=== PATIENT | female | born 1980 | race Caucasian/White ===

== ENCOUNTER 2021-09-30 10:44 | Outpatient (CLI) | payer MEDICAID, SELFPAY ==
--- NOTE | 2021-09-30 10:45 | CRLHL7_ITS ---
For Patients: As a result of the Cures Act, medical imaging exams and procedure reports are released immediately into your electronic medical record. You may view this report before your referring provider. If you have questions, please contact your health care provider. DIIGTAL DIAGNOSTIC BILATERAL MAMMOGRAM USING TOMOSYNTHESIS AND COMPUTER-AIDED DETECTION, 09/30/2021 BILATERAL BREAST ULTRASOUND, 09/30/2021 CLINICAL HISTORY: BILATERAL breast lumps. COMPARISON: Mammogram/ultrasound 01/22/2021 and 05/23/2019. RIGHT breast cyst aspiration 01/26/2021. TECHNIQUE: Digital BILATERAL mammogram in four projections. Tomosynthesis and CAD utilized. Real-time ultrasound imaging of BILATERAL breast with imaging documentation. BREAST COMPOSITION: The breasts are heterogeneously dense, which may obscure small masses. FINDINGS: 3D CC and 3D MLO mammogram submitted bilaterally. Benign fibrocystic changes are noted bilaterally without architectural distortion or suspicious masses. No adenopathy or suspicious calcifications. Targeted RIGHT breast ultrasound in the area of concern RIGHT breast 11 o`clock 7 cm from the nipple performed. In this location at mid depth there is a simple anechoic cyst measuring 8 x 6 x 7 mm. Targeted LEFT breast ultrasound in the area of concern 12 o`clock 6 cm from the nipple performed. In this location at mid depth there is a benign intramammary lymph node with a normal central fatty hilum measuring 1.0 x 0.5 x 1.0 cm. IMPRESSION: BILATERAL for benign fibrocystic changes and benign intramammary lymph node LEFT breast. No evidence of malignancy. BI-RADS Category 2: Benign RECOMMENDATIONS: Annual BILATERAL screening mammography. Results and recommendations discussed with the patient. A lay language report of this examination will be provided to the patient. Dictated by Rei Harding MD @ 09/30/2021 11:50:50 AM jj/Dictated by: Rei Harding MD @ 09/30/2021 11:50:00 AM (Electronically Signed)
--- NOTE | 2021-09-30 11:15 | CRLHL7_ITS ---
For Patients: As a result of the Cures Act, medical imaging exams and procedure reports are released immediately into your electronic medical record. You may view this report before your referring provider. If you have questions, please contact your health care provider. PLEASE SEE BILATERAL DIAGNOSTIC MAMMOGRAM PERFORMED SAME DAY. CRL:candi christopher/Dictated by: Rei Harding MD @ 09/30/2021 11:50:00 AM (Electronically Signed)
== END 2021-09-30 10:45 | disposition home or self-care (01) ==
LOC: MAMMO 10:45
PROVIDERS: PCP Physician Assistant Medical; Visit Provider Physician Assistant Medical
DX: N63.10 Unspecified lump in the right breast, unspecified quadrant (principal); N63.20 Unspecified lump in the left breast, unspecified quadrant; N60.19 Diffuse cystic mastopathy of unspecified breast
CPT/HCPCS: 76642; 77066; G0279

== ENCOUNTER 2022-01-24 14:19 | Outpatient (CLI) | payer MEDICAID, SELFPAY ==
[2022-01-24 21:57] LABS: Albumin* 4.6 g/dL (3.3-5.0); Chloride* 98 mmol/L (96-114); Sodium* 136 mmol/L (135-149)
[2022-01-24 21:58] LABS: Potassium* 4.1 mmol/L (3.6-5.1)
[2022-01-24 21:59] LABS: Creatinine* 0.6 mg/dL (0.5-1.5); Estimated Glomerular Filt Rate 116 ml/min
[2022-01-24 22:00] LABS: Alanine Aminotransferase* 56 U/L (4-35); Alkaline Phosphatase* 87 U/L (40-150); Aspartate Amino Transferase* 60 U/L (12-35); Bilirubin Total* 0.4 mg/dL (0.1-1.5); Blood Urea Nitrogen* 9 mg/dL (5-24); Carbon Dioxide* 27 mmol/L (20-32); Glucose* 74 mg/dL (60-115); Lipase* 124 U/L (23-300); Total Protein* 7.4 g/dL (6.0-8.3)
[2022-01-24 22:01] LABS: Calcium* 9.2 mg/dL (8.4-10.6)
== END 2022-01-24 14:20 | disposition home or self-care (01) ==
PROVIDERS: PCP Physician Assistant Medical; Visit Provider Physician Assistant Medical
DX: R10.9 Unspecified abdominal pain (principal); K92.1 Melena; I10 Essential (primary) hypertension
CPT/HCPCS: 80053; 83690

== ENCOUNTER 2022-02-03 13:49 | Outpatient (CLI) | payer MEDICAID, SELFPAY ==
--- NOTE | 2022-02-03 14:00 | CRLHL7_ITS ---
For Patients: As a result of the Century Cures Act, medical imaging exams and procedure reports are released immediately into your electronic medical record. You may view this report before your referring provider. If you have questions, please contact your health care provider. INDICATION: Right upper quadrant abdominal pain. Elevated liver function tests. TECHNIQUE: Right upper quadrant ultrasound. FINDINGS: Dense echogenic liver likely due to fatty infiltration or other intrinsic hepatic parenchymal process. No hepatic mass. No biliary ductal dilatation. No right upper quadrant ascites. Normal gallbladder without stones or sludge. The gallbladder wall measures 1.2 mm. The common bile duct measures up to 6.2 mm. The pancreas demonstrates a heterogeneous partly hypoechoic echotexture which is nonspecific. The right kidney measures 10.6 x 5.2 x 4.3 cm. No right-sided hydronephrosis. The visualized aorta and IVC are unremarkable. IMPRESSION: 1. Dense echogenic liver which may reflect fatty infiltration or other intrinsic hepatic parenchymal process. 2. Heterogeneous hypoechoic echotexture of the pancreas entirely nonspecific. 3. No gallstones or biliary dilatation. No right upper quadrant ascites. Dictated by Vasu Zarate MD @ 02/03/2022 3:04:43 PM (Electronically Signed)
== END 2022-02-03 13:50 | disposition home or self-care (01) ==
LOC: US 13:50
PROVIDERS: PCP Physician Assistant Medical; Visit Provider Physician Assistant Medical
DX: R10.11 Right upper quadrant pain (principal); R79.89 Other specified abnormal findings of blood chemistry
CPT/HCPCS: 76705

== ENCOUNTER 2022-04-04 11:00 | Emergency (ER) | payer MEDICAID, SELFPAY ==
[2022-04-04 11:04] VITALS: BP 113/74; PULSE 131; RESP 16; TEMP 36.3; O2SAT 99; BMI 25.0
[2022-04-04] MEDS: OXYCODONE 5 MG TABLET PO (11:51)
--- NOTE | 2022-04-04 11:51 | ED_ITS ---
HPI - General Adult General Date Seen: 04/04/22 Chief complaint: Unspecified Complaint, Adult Stated complaint: Rectal prolapse Time Seen by Provider: 04/04/22 11:17 Source: patient History of Present Illness HPI narrative: Patient is a 41-year-old female who presents complaining of severe rectal pain. She says this has been bothering her since the weekend, she presents the ER on Monday. She is concerned about a recurrent rectal prolapse. She says that she has been having problems since January, but she has always been able to reduce things. Over the weekend, she has not been able to reduce it however because it is simply too painful. She says she has felt nauseated because of the pain. She has not had any vomiting. She called her clinic today to if she could be referred back to her surgeon sooner, but they recommended that she come to the ER. She does have an appointment with her surgeon upcoming but not for a couple weeks and she says she could not wait until then. 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 She says that she has difficulty with healing after surgery because things tend to ?fall apart. Related Data Home Medications Medication Instructions Recorded Confirmed desvenlafaxine succinate 100 mg 100 mg PO DAILY 01/24/22 04/04/22 tablet,extended release 24 hr Previous Rx's Medication Instructions Recorded valsartan 320 1 tab PO QDAY #90 tabs 01/24/22 mg-hydrochlorothiazide 25 mg tablet peg 3350-electrolytes 236 240 ml PO Q10M #4,000 mL 02/16/22 gram-22.74 gram-6.74 gram-5.86 gram solution (Golytely) lisdexamfetamine 10 mg capsule 10 mg PO QAM #30 caps 03/07/22 (Vyvanse) pregabalin 150 mg capsule 150 mg PO QDAY #90 caps 03/25/22 hydrocortisone 2.5 % topical cream 1 applic topical BID #20 grams 04/04/22 oxycodone 5 mg tablet 5 mg PO Q6H PRN pain #7 tabs 04/04/22 Allergies Allergy/AdvReac Type Severity Reaction Status Date / Time amoxicillin Allergy Intermediate Nausea Verified 04/04/22 11:10 Doxycycline Allergy Unknown Uncoded 04/04/22 11:10 Escitalopram Allergy Unknown Uncoded 04/04/22 11:10 Review of Systems Status of ROS: Reports: 10 or more systems reviewed and unremarkable except as noted in History and below [facility] Medical History Cellulitis Fibromyalgia History of malignant melanoma History of opioid abuse Ovarian torsion (~05/2019) Surgical History (Updated 01/26/22 @ 07:36 by Keshia Bustillos PA-C) History of arthroplasty of left hip History of hernia repair History of partial hysterectomy Status post left oophorectomy (2019) Social History Smoking Status: Current every day smoker How often do you have a drink containing alcohol: never AUDIT-C Alcohol total score: 0 Non-prescribed substance use: denies use Exam Narrative: Exam Narrative: Vital signs reviewed In general, an alert, somewhat tearful woman. Abdomen: Soft and nontender to palpation Rectal: She has a thrombosed hemorrhoid. Rectal exam is otherwise normal. No evidence of rectal prolapse. Skin: Warm and dry. Const: Vital Signs, click to edit/add: Vital Signs - 24 hr 04/04/22 11:04 Temperature 97.4 F L Pulse Rate [Right Pulse Oximeter] 131 H Respiratory Rate 16 Blood Pressure [Ri ght Upper Arm] 113/74 Pulse Oximetry 99 Oxygen Delivery Me thod Room Air Documenting provider has reviewed patient's vital signs: yes Course Course Hospital Course: Reassured her that there is no evidence of prolapse here. Symptoms are coming from the thrombosed hemorrhoid which it sounds like has been symptomatic for coming up on 3 days. Given that she is at the tail end of when this is likely to be symptomatic and taking into account her connective tissue disease, I am hesitant to excise this. I think she would be better served by symptomatic management. She is given oxycodone orally here. I will give her oxycodone rate home, hydrocortisone cream to use over the next several days, up to 1 week maximum. Sitz baths. Anticipate this will improve over the next day or so. Vital Signs Vital signs: Initial Vital Signs Temperature 97.4 F L 04/04/22 11:04 Temperature Source Temporal Artery Scan 04/04/22 11:04 Pulse Rate 131 H 04/04/22 11:04 Respiratory Rate 16 04/04/22 11:04 Blood Pressure 113/74 04/04/22 11:04 Blood Pressure Mean 87 04/04/22 11:04 Blood Pressure Position Sitting 04/04/22 11:04 Pulse Oximetry 99 04/04/22 11:04 Oxygen Delivery Method 04/04/22 11:04 Vital Signs Temperature 97.4 F L 04/04/22 11:04 Pulse Rate 131 H 04/04/22 11:04 Respiratory Rate 16 04/04/22 11:04 Blood Pressure 113/74 04/04/22 11:04 Pulse Oximetry 99 04/04/22 11:04 Oxygen Delivery Method 04/04/22 11:04 Temperature 97.4 F L 04/04/22 11:04 Pulse Rate 131 H 04/04/22 11:04 Respiratory Rate 16 04/04/22 11:04 Blood Pressure 113/74 04/04/22 11:04 Pulse Oximetry 99 04/04/22 11:04 Oxygen Delivery Method 04/04/22 11:04 Discharge Plan Discharge Clinical Impression: Thrombosed hemorrhoids Patient Disposition: Home, Self-Care Condition: Stable Instructions: Thrombosed Hemorrhoid (ED) Additional Instructions: Recommend Sitz baths, medications as prescribed. Use steroid for only several days up to 1 week. Symptoms will likely less than over the next 24 hours. Make sure to stay hydrated, avoid constipation. Do not sit on the toilet for prolonged periods of time. Prescriptions: New hydrocortisone 2.5 % cream 1 applic topical BID Qty: 20 0RF oxycodone 5 mg tablet 5 mg PO Q6H PRN (Reason: pain) Qty: 7 0RF No Action desvenlafaxine succinate 100 mg tablet extended release 24 hr 100 mg PO DAILY valsartan-hydrochlorothiazide 320-25 mg tablet 1 tab PO QDAY Qty: 90 0RF peg 3350-electrolytes [Golytely] 236-22.74-6.74 -5.86 gram recon soln 240 ml PO Q10M Qty: 4000 0RF Rx Instructions: until fecal effluent is clear Vyvanse 10 mg capsule 10 mg PO QAM Qty: 30 0RF pregabalin 150 mg capsule 150 mg PO QDAY Qty: 90 0RF Follow Up/Referrals: Keshia Bustillos PA-C [Primary Care Provider] - Stand Alone Forms: MyHealth Info Instructions
== END 2022-04-04 12:07 | disposition home or self-care (01) ==
PROVIDERS: Emergency Provider Emergency Medicine; PCP Physician Assistant Medical
DX: K64.5 Perianal venous thrombosis (principal)
CPT/HCPCS: 99283; 99284; A9270

== ENCOUNTER 2022-04-06 14:01 | Emergency (ER) | payer MEDICAID, SELFPAY ==
[2022-04-06 14:07] VITALS: RESP 18
[2022-04-06 14:14] VITALS: BP 150/91; PULSE 118; RESP 18; TEMP 36.4; O2SAT 97; BMI 25.0
--- NOTE | 2022-04-06 15:03 | ED.NURSE ---
I, Ira Edouard RN, was present for an examination as a fish processor for a rectal exam. No specimens were collected during this exam.
[2022-04-06] MEDS: OxyCODONE/APAP 5-325 TABLET 2 TAB PO (15:33)
[2022-04-06] MEDS: BUPIVACAINE 0.25% 30 ML INJECTION (15:45)
--- NOTE | 2022-04-06 16:41 | ED.NURSE ---
Assisted Dr. Zapata with a hemorrhoid dissection.
--- NOTE | 2022-04-06 18:01 | ED.GENADULT ---
HPI - General Adult General Chief complaint: Unspecified Complaint, Adult Stated complaint: Hemorrhoid pain Time Seen by Provider: 04/06/22 14:07 History of Present Illness HPI narrative: 41-year-old woman returning to the emergency department with complaint of severe anal area pain. Was seen here 3 days ago and noted to have a thrombosed external hemorrhoid but due to underlying Toby-Danlos concerns were noted regarding intervention and potential poor healing. I inquire with Ms. Krueger about what degree of Toby-Danlos she has, she notes more muscular effect of some sort. She is quite worried that she has now been experiencing some rectal prolapse. Some years ago did undergo procedures for pelvic floor dysfunction including prolapse. She feels like this might be occurring again; is quite fearful that this is occurring again. She is nauseated due to knife like pain and is terrified of having another bowel movement. Tearful recounting. She maintains that these have been relatively soft. She was discharged with 7 tablets of Percocet she says and has 2 more remaining. Has only been taking 1 at a time. Has also been using hydrocortisone cream and some witch Peace. Pain is into her abdomen as well is even nauseated with her pain. Related Data Home Medications Medication Instructions Recorded Confirmed desvenlafaxine succinate 100 mg 100 mg PO DAILY 01/24/22 04/04/22 tablet,extended release 24 hr Previous Rx's Medication Instructions Recorded valsartan 320 1 tab PO QDAY #90 tabs 01/24/22 mg-hydrochlorothiazide 25 mg tablet peg 3350-electrolytes 236 240 ml PO Q10M #4,000 mL 02/16/22 gram-22.74 gram-6.74 gram-5.86 gram solution (Golytely) lisdexamfetamine 10 mg capsule 10 mg PO QAM #30 caps 03/07/22 (Vyvanse) pregabalin 150 mg capsule 150 mg PO QDAY #90 caps 03/25/22 hydrocortisone 2.5 % topical cream 1 applic topical BID #20 grams 04/04/22 oxycodone 5 mg tablet 5 mg PO Q6H PRN pain #7 tabs 04/04/22 lidocaine 4 % topical cream 1 applic topical QID PRN pain #15 04/06/22 grams Allergies Allergy/AdvReac Type Severity Reaction Status Date / Time amoxicillin Allergy Intermediate Nausea Verified 04/04/22 11:10 Doxycycline Allergy Unknown Uncoded 04/04/22 11:10 Escitalopram Allergy Unknown Uncoded 04/04/22 11:10 Review of Systems Status of ROS: Reports: 10 or more systems reviewed and unremarkable except as noted in History and below [facility] Medical History Cellulitis Fibromyalgia History of malignant melanoma History of opioid abuse Ovarian torsion (~05/2019) Surgical History (Updated 01/26/22 @ 07:36 by Keshia Bustillos PA-C) History of arthroplasty of left hip History of hernia repair History of partial hysterectomy Status post left oophorectomy (2019) Social History Smoking Status: Current every day smoker How often do you have a drink containing alcohol: never AUDIT-C Alcohol total score: 0 Non-prescribed substance use: denies use Exam Narrative: Exam Narrative: Pleasant. Intermittently tearful. Rather uncomfortable with transitions in the bed. Skin is warm and dry. Well perfused peripherally. Breathing easily. Heart with elevated rate in a regular rhythm. Abdomen with normal bowel sounds is soft with a little discomfort to palpation cross the low abdomen. No mass is appreciated. Ano-rectal exam accomplished with automobile brake bonder present. There is a 2 cm thrombosed but not remarkably inflamed hemorrhoid just right of the 6 o'clock position. This appears to be the area of maximal pain. Some indication of mild hemorrhoidal tissue elsewhere. Asked to push I do not see any evidence to suggest impending rectal prolapse. Const: Vital Signs, click to edit/add: Vital Signs - 24 hr 04/06/22 14:14 04/06/22 14:07 Temperature 97.6 F Pulse Rate [Right Pulse Oximeter] 118 H Respiratory Rate 18 Respiratory Rate [ Rectum] 18 Blood Pressure [Ri ght Upper Arm] 150/91 H Pulse Oximetry 97 Oxygen Delivery Me thod Room Air Documenting provider has reviewed patient's vital signs: yes Course Vital Signs Vital signs: Initial Vital Signs Respiratory Rate 18 04/06/22 14:07 Vital Signs Respiratory Rate 18 04/06/22 14:07 Temperature 97.6 F 04/06/22 14:14 Pulse Rate 118 H 04/06/22 14:14 Respiratory Rate 18 04/06/22 14:14 Blood Pressure 150/91 H 04/06/22 14:14 Pulse Oximetry 97 04/06/22 14:14 Oxygen Delivery Method 04/06/22 14:14 Medical Decision Making MDM Narrative Medical decision making narrative: I am unsure whether or not lysis of this hemorrhoid would be helpful however there does not seem to be any other reason for her to be having this degree of pain. There is some other scarring on buttocks consistent with cystic structures in the past; scarring that does seem a little atypical possibly representing then Toby Danlos. Informed consent obtained. She would like to proceed with hemorrhoid excision. Again automobile brake bonder present for entire procedure and further exam. Prior to proceeding was given two tablets of Percocet. This did ultimately take hold but shortly before she did tolerate anal area njection of fanned bupivicaine. Excellent procedural anesthesia ultimately achieved. Area was cleansed with Betadine before proceeding. 15 blade used to enter the largest hemorrhoid. Numerous small clots were bluntly dissected with curved mosquito. There was another hemorrhoid slightly more medial to this larger hemorrhoid from which I removed also another small clot. Was able then to reduce residual hemorrhoidal tissues somewhat into anus. Did also place anoscopy to examine area further. Small purple hemorrhoidal tissue evident about an inch in around 6 o'clock dentate line. No indication otherwise of inflammatory changes in the rectum. She tolerated entire procedure very well; placement of the anoscope as well. Approximately 3 ml of bleeding. Only small oozing at procedure end. Rolled gauze placed. Discharge Plan Discharge Clinical Impression: External hemorrhoid, thrombosed, Anal or rectal pain Patient Disposition: Home w/ Parent or Adult Condition: Stable Additional Instructions: Very important that you keep your stool soft. Be sure you are drinking at least 2-3 L of water daily. Supplement with fruits. Might take 2 doses of MiraLax equivalent by noon and adjust to stool consistency. If you are taking your Percocet, consider also taking senna once or twice daily. You might benefit from steroid cream but I think in the short term anesthetic creams containing lidocaine or benzocaine and witch Peace will be most helpful. I would try the 4% lidocaine ointment or cream; gels may have drying agents like alcohol which could be uncomfortable. Icing as you discussed, Sitz baths. Return for uncontrolled pain and bleeding such that you are soaking 1 thick pad an hour for 2 consecutive hours. If you do not already have a bidet lid for your toilet or a real bidet, consider getting one. Can also use a shower Wand in the tub/shower for cleaning. Temporarily can take up to 800 mg of ibuprofen per dose or up to 1000 mg of acetaminophen per dose; these can be combined. Alternative to the ibuprofen could take up to 500 mg of naproxen 2 times daily. Percocet and Zofran from [facility] Prescriptions: New lidocaine 4 % cream 1 applic topical QID PRN (Reason: pain) Qty: 15 1RF No Action desvenlafaxine succinate 100 mg tablet extended release 24 hr 100 mg PO DAILY valsartan-hydrochlorothiazide 320-25 mg tablet 1 tab PO QDAY Qty: 90 0RF hydrocortisone 2.5 % cream 1 applic topical BID Qty: 20 0RF oxycodone 5 mg tablet 5 mg PO Q6H PRN (Reason: pain) Qty: 7 0RF peg 3350-electrolytes [Golytely] 236-22.74-6.74 -5.86 gram recon soln 240 ml PO Q10M Qty: 4000 0RF Rx Instructions: until fecal effluent is clear Vyvanse 10 mg capsule 10 mg PO QAM Qty: 30 0RF pregabalin 150 mg capsule 150 mg PO QDAY Qty: 90 0RF Follow Up/Referrals: Keshia Bustillos PA-C [Primary Care Provider] - Stand Alone Forms: MyHealth Info Instructions
== END 2022-04-06 18:35 | disposition home or self-care (01) ==
PROVIDERS: Emergency Provider Family Medicine; PCP Physician Assistant Medical
DX: K64.5 Perianal venous thrombosis (principal)
CPT/HCPCS: 46320; 99283; 99284; A9270; J3490

== ENCOUNTER 2022-09-08 14:20 | Outpatient (CLI) | payer MEDICAID, SELFPAY | END 2022-09-08 14:21 | disposition home or self-care (01) | PROVIDERS: PCP Physician Assistant Medical; Visit Provider Physician Assistant Medical | DX: R10.9 Unspecified abdominal pain (principal); R79.89 Other specified abnormal findings of blood chemistry; R19.7 Diarrhea, unspecified | CPT/HCPCS: 80076; 83516; 83690 ==

== ENCOUNTER 2022-09-22 11:37 | Outpatient (CLI) | payer MEDICAID, SELFPAY ==
--- NOTE | 2022-09-22 12:00 | CRLHL7_ITS ---
For Patients: As a result of the Century Cures Act, medical imaging exams and procedure reports are released immediately into your electronic medical record. You may view this report before your referring provider. If you have questions, please contact your health care provider. INDICATION: 41-year-old female. Abdominal pain for greater than 1 year. Negative ultrasound February 03, 2022. TECHNIQUE: 5.36 mCi Tc-99m labeled Mebrofenin. 1.38 mcg Kinevac IV. FINDINGS: Normal uptake and excretion of tracer by the liver. Activity is identified promptly within the extrahepatic biliary tree and the gallbladder between 10 and 15 minutes after injection. The gallbladder continues to fill up to 1 hour. After the administration of Kinevac the patient`s typical symptoms were reproduced. However the ejection fraction is calculated at 91 percent which is within normal limits. IMPRESSION: 1. Normal HIDA scan. No evidence for cystic duct or common duct obstruction. No biliary leak. No evidence for acute cholecystitis. 2. Normal gallbladder ejection fraction of 91 percent. Dictated by Vasu Zarate MD @ 09/22/2022 2:32:08 PM (Electronically Signed)
== END 2022-09-22 11:38 | disposition home or self-care (01) ==
LOC: NM 11:37
PROVIDERS: PCP Physician Assistant Medical; Visit Provider Physician Assistant Medical
DX: R10.9 Unspecified abdominal pain (principal)
CPT/HCPCS: 78227; A9537; J2805

== ENCOUNTER 2022-10-13 10:17 | Outpatient (CLI) | payer MEDICAID, SELFPAY ==
--- NOTE | 2022-10-13 07:09 | W.ANESCHARGE ---
Anesthesia Charges Start Date/Time Anesthesia Start Date: 10/13/22 Anesthesia Start Time: 12:48 Stop Date/Time Anesthesia Stop Date: 10/13/22 Anesthesia Stop Time: 13:06
--- NOTE | 2022-10-13 07:09 | PM.ANHP ---
HPI - Pre-Anesthesia History of Present Illness Time Seen by Provider: 11:05 Date Seen: 10/13/22 Date of service: 10/13/22 Source: patient and old records reviewed Review of Systems Status of ROS Reports: 6 or more systems reviewed and unremarkable except as noted in History and below [facility] Medical History (Updated 10/03/22 @ 19:52 by Keshia Bustillos PA-C) Ovarian torsion (~05/2019) ?N83.519 - Torsion of ovary and ovarian pedicle, unspecified side (ICD-10) History of opioid abuse ?F11.11 - Opioid abuse, in remission (ICD-10) History of malignant melanoma ?Z85.820 - Personal history of malignant melanoma of skin (ICD-10) Cellulitis ?L03.90 - Cellulitis, unspecified (ICD-10) Surgical History (Updated 01/26/22 @ 07:36 by Keshia Bustillos PA-C) History of arthroplasty of left hip ?Z98.890 - Other specified postprocedural states (ICD-10) Status post left oophorectomy (2019) ?Z90.721 - Acquired absence of ovaries, unilateral (ICD-10) History of partial hysterectomy ?Z90.711 - Acquired absence of uterus with remaining cervical stump (ICD-10) History of hernia repair ?Z98.890 - Other specified postprocedural states (ICD-10) ?Z87.19 - Personal history of other diseases of the digestive system (ICD-10) Social History Smoking Status: Current every day smoker How often do you have a drink containing alcohol: never AUDIT-C Alcohol total score: 0 Non-prescribed substance use: denies use Little interest or pleasure in doing things: not at all Feeling down, depressed, or hopeless: not at all Meds Home Medications and Allergies Allergies Allergy/AdvReac Type Severity Reaction Status Date / Time amoxicillin Allergy Intermediate Nausea Verified 09/08/22 14:45 doxycycline Allergy Verified 09/08/22 14:45 escitalopram Allergy Verified 09/08/22 14:45 fluconazole Allergy Verified 09/08/22 14:45 tramadol Allergy Verified 09/08/22 14:45 Exam Const Documenting provider has reviewed patient's vital signs: yes Common normals: no apparent distress, oriented x3, healthy appearing, alert and well nourished General appearance: cooperative and comfortable Orientation/consciousness: Yes awake HENMT Common normals: normocephalic Head and scalp: normocephalic Neck & C-Spine Common normals: full ROM Chest Chest: symmetrical chest wall rise Resp Common normals: normal respiratory effort, no retractions, no use of accessory muscles and clear to auscultation bilaterally Auscultation: clear to auscultation bilaterally Cardio Common normals: regular rate, regular rhythm, S1 normal heart sound, S2 normal heart sound and no murmurs Rate: regular rate Rhythm: regular rhythm Heart sounds: S1 normal and S2 normal Neuro Common normals: oriented x3 Sensorium/orientation: awake and alert Assessment and Plan Assessment and plan (1) GERD (gastroesophageal reflux disease): Status: Acute (2) Abdominal pain: Status: Acute Plan ok to proceed with sedation for endoscopy
--- NOTE | 2022-10-13 13:09 | W.ANESCHARGE ---
Anesthesia Charges Start Date/Time Anesthesia Start Date: 10/13/22 Anesthesia Start Time: 12:48 Stop Date/Time Anesthesia Stop Date: 10/13/22 Anesthesia Stop Time: 13:06
== END 2022-10-13 10:18 | disposition home or self-care (01) ==
LOC: OP CLINIC 10:18
PROVIDERS: PCP Physician Assistant Medical; Visit Provider Surgery
DX: R10.13 Epigastric pain (principal); K22.89 Other specified disease of esophagus; K29.70 Gastritis, unspecified, without bleeding; K31.89 Other diseases of stomach and duodenum
CPT/HCPCS: 43239; 731; 88305; J2704; J3490

== ENCOUNTER 2023-06-06 13:11 | Outpatient (CLI) | payer MEDICAID, SELFPAY ==
[2023-06-06 15:29] LABS: Chlamydia DNA Amplified* NOT DETECTED (No Detected); GC DNA Amplified* NOT DETECTED (No Detected)
== END 2023-06-06 13:12 | disposition home or self-care (01) ==
PROVIDERS: PCP Physician Assistant Medical; Visit Provider Physician Assistant
DX: N93.0 Postcoital and contact bleeding (principal)
CPT/HCPCS: 83001; 84443; 87491; 87591

== ENCOUNTER 2023-06-14 15:49 | Outpatient (CLI) | payer MEDICAID, SELFPAY ==
--- NOTE | 2023-06-14 16:00 | US_ITS ---
Patient: AARON TAVERAS Facility:?[facility] Patient ID:?[id number] Site Patient ID:?[id number]. Site :?[id number] Study:?US-OB Pelvis TA/TV Pelvic US-06/14/2023 4:41:57 PM Ordering Physician:Kiel June Final Report: INDICATION: Pelvic pain/bloating COMPARISON: Ultrasound 06/03/2019 TECHNIQUE: 2D cortes scale and color Doppler images were acquired of the pelvis using a transabdominal and transvaginal approach. Power Doppler evaluation of the right ovary also performed. FINDINGS: The uterus is absent. Absent left ovary. Vaginal cuff appears intact with mild cystic change. No pelvic free fluid. Right ovary measures 5.1 x 2.9 x 2.7 cm. Normal blood flow to the right ovary. Simple cyst right ovary measures 3.2 x 1.7 x 1.8 cm. Normal spectral Doppler imaging of the right ovary. IMPRESSION: Status post hysterectomy and left oophorectomy. Simple cyst right ovary. No evidence of right ovarian torsion. No excess pelvic free fluid or adnexal mass. Dictated by Rei Harding MD @ 06/15/2023 9:35:42 AM Signed by:?Rei Harding MD @06/15/2023 9:35:42 AM (Electronic Signature)
== END 2023-06-14 15:50 | disposition home or self-care (01) ==
LOC: US 15:49
PROVIDERS: PCP Physician Assistant Medical; Visit Provider Physician Assistant
DX: R10.2 Pelvic and perineal pain (principal)
CPT/HCPCS: 76830; 76856

== ENCOUNTER 2023-07-04 10:01 | Outpatient (CLI) | payer MEDICAID, SELFPAY ==
--- NOTE | 2023-07-04 10:15 | MM_ITS ---
Patient: MITALI CARTAGENA Facility:?[facility] Patient ID:?[id number] Site Patient ID:?[id number]. Site :?09/26/1989 Study:?XRay-Breast Bilateral 3D W/CAD-07/04/2023 11:44:43 AM Ordering Physician:Gabriela Final Report: BILATERAL SCREENING MAMMOGRAM WITH COMPUTER-AIDED DETECTION AND TOMOSYNTHESIS TECHNIQUE: CC and MLO views were obtained. These mammographic images have been obtained using full-field digital technique. These mammographic images were interpreted with the benefit of computer-aided detection. Breast Tomosynthesis was used in this interpretation. COMPARISON FILM: 04/13/22, 03/30/21, 02/03/20. FINDINGS: There are scattered areas of fibroglandular density. IMPRESSION: There is no radiographic evidence for malignancy. ASSESSMENT: BI-RADS Category 1: Negative RECOMMENDATION: Routine screening mammogram in 1 year. A lay language report of this examination will be provided to the patient. Rei Harding M.D. Diagnostic Radiologist [email or web address] DSM/sp R& Transcribed: 1:57 p.m. SP/Dictated by: Rei Harding MD @ 07/04/2023 12:29:00 PM Signed by:?Rei Harding MD @07/04/2023 3:19:57 PM (Electronic Signature)
== END 2023-07-04 10:02 | disposition home or self-care (01) ==
LOC: MAMMO 10:01
PROVIDERS: PCP Physician Assistant Medical; Visit Provider Physician Assistant
DX: Z12.31 Encounter for screening mammogram for malignant neoplasm of breast (principal)
CPT/HCPCS: 77063; 77067

== ENCOUNTER 2023-07-29 12:44 | Emergency (ER) | payer OTHER, SELFPAY ==
[2023-07-29] VITALS (12 sets, daily range): BP systolic 130–137; BP diastolic 97–103; PULSE 86–99; RESP 16–18; TEMP 36.3; O2SAT 96–100; BMI 25.0
--- NOTE | 2023-07-29 13:58 | ED.GENADULT ---
HPI - General Adult General Chief complaint: Unspecified Complaint, Adult Stated complaint: low potassium, abnormal ekg Time Seen by Provider: 07/29/23 13:58 History of Present Illness HPI narrative: Patient seen at Urgent Care for rectal bleeding, incidental finding of low potassium and abnormal EKG 42-year-old woman presenting to the emergency department after initially being seen in urgent care. Written reporting tingly finger tips generally well. No destructive with alcoholism. Was noted on workup to have hypokalemia. I did discuss with the provider initially. It is my understanding that an EKG was done which was thought to be abnormal which is prompting recommendations to present now to the emergency department. She does endorse a history of excessive alcohol consumption but says she has really cut back. Liver enzymes have also improved she notes. Does have a history of hemorrhoids and what was alarming also is that has been having rectal bleeding. She notes a good deal of blood in the toilet. After exam in urgent care suspected hemorrhoid or possibly anal fissure related. She believes this is likely as well. Hemoglobin was normal. Woke this morning just not feeling well. What was described as dizziness is clarified I think to a sense of wooziness or that when she is trying to read her phone she said she feels like her eyes are crossing. Has not had sinus symptoms. She also upon waking had some tingling in her palms. Has not prior noted and neuropathy nor as far as I understand been diagnosed with than alcoholic neuropathy. Some abdominal discomfort which sounds to be relatively chronic with some right upper quadrant area pain with extensive evaluation as she reports. Hepatic steatosis noted in past medical. Hypokalemia as noted above. Does take valsartan-hydrochlorothiazide. Does have chronically loose diarrheal stools as well. Again this is not new. Medication is not new either. Related Data Previous Rx's Medication Instructions Recorded estradiol 0.05 mg/24 hr semiweekly 1 patch transdermal 2XW #24 ea 07/13/23 transdermal patch metformin 500 mg tablet 500 mg PO BIDWMEAL #180 tabs 07/13/23 omeprazole 20 mg capsule,delayed 20 mg PO BID #180 caps 07/13/23 release valsartan 320 1 tab PO QDAY #90 tabs 07/13/23 mg-hydrochlorothiazide 25 mg tablet venlafaxine 37.5 mg 37.5 mg PO QDAY #90 caps 07/13/23 capsule,extended release 24 hr lisdexamfetamine 20 mg capsule 20 mg PO QAM #30 caps 07/25/23 (Vyvanse) magnesium oxide 400 mg PO DAILY #30 caps 07/29/23 potassium chloride 20 mEq 20 meq PO DAILY #30 tabs 07/29/23 tablet,extended release Allergies Allergy/AdvReac Type Severity Reaction Status Date / Time amoxicillin Allergy Intermediate Nausea Verified 06/13/23 14:14 doxycycline Allergy Verified 06/13/23 14:14 escitalopram Allergy Verified 06/13/23 14:14 fluconazole Allergy Verified 06/13/23 14:14 tramadol Allergy Verified 06/13/23 14:14 Review of Systems Status of ROS: Reports: 6 or more systems reviewed and unremarkable except as noted in History and below [facility] Ovarian torsion (~05/2019) ?N83.519 - Torsion of ovary and ovarian pedicle, unspecified side (ICD-10) History of opioid abuse ?F11.11 - Opioid abuse, in remission (ICD-10) History of malignant melanoma ?Z85.820 - Personal history of malignant melanoma of skin (ICD-10) Cellulitis ?L03.90 - Cellulitis, unspecified (ICD-10) Surgical History History of arthroplasty of left hip ?Z98.890 - Other specified postprocedural states (ICD-10) Status post left oophorectomy (2019) ?Z90.721 - Acquired absence of ovaries, unilateral (ICD-10) History of partial hysterectomy ?Z90.711 - Acquired absence of uterus with remaining cervical stump (ICD-10) History of hernia repair ?Z98.890 - Other specified postprocedural states (ICD-10) ?Z87.19 - Personal history of other diseases of the digestive system (ICD-10) 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 Smoking Status: Current every day smoker Second hand tobacco smoke exposure: No How often do you have a drink containing alcohol: 4 or more times a week How many standard drinks containing alcohol do you have on a typical day: 3 or 4 AUDIT-C Alcohol total score: 5 Non-prescribed substance use: denies use Little interest or pleasure in doing things: not at all Feeling down, depressed, or hopeless: not at all Exam Narrative: Exam Narrative: Pleasant. NAD. Darkly tanned. Breathing easily. Seems little tired. Lungs are clear. Heart in elevated rate regular rhythm. No murmur rub or gallop identified. Abdomen is soft with normal bowel sounds. She is mildly tender in the right upper quadrant as billed. No masses appreciated. No flank pain noted. Extremities are well perfused without edema. She is moving extremities fluidly. There is no nystagmus with eye movement. Pupils are equal. She is rotating her head without significant reproduction of her symptoms. Const: Vital Signs, click to edit/add: Vital Signs - 24 hr 07/29/23 13:14 07/29/23 14:42 07/29/23 14:45 Temperature 97.3 F L Pulse Rate 86 88 Pulse Rate [Pulse Oximeter] 97 Respiratory Rate 16 Blood Pressure Blood Pressure [Ri ght Upper Arm] 136/103 H Pulse Oximetry 98 100 98 Oxygen Delivery Me thod Room Air Room Air 07/29/23 14:59 07/29/23 15:00 07/29/23 15:01 Temperature Pulse Rate 91 93 91 Pulse Rate [Pulse Oximeter] Respiratory Rate 18 Blood Pressure 137/101 H 130/97 H Blood Pressure [Ri ght Upper Arm] Pulse Oximetry 99 99 99 Oxygen Delivery Me thod 07/29/23 15:15 07/29/23 15:30 07/29/23 15:34 Temperature Pulse Rate 89 91 94 Pulse Rate [Pulse Oximeter] Respiratory Rate Blood Pressure Blood Pressure [Ri ght Upper Arm] Pulse Oximetry 99 98 100 Oxygen Delivery Me thod Room Air 07/29/23 15:45 07/29/23 16:00 07/29/23 16:04 Temperature Pulse Rate 98 90 99 Pulse Rate [Pulse Oximeter] Respiratory Rate Blood Pressure Blood Pressure [Ri ght Upper Arm] Pulse Oximetry 96 99 99 Oxygen Delivery Me thod Documenting provider has reviewed patient's vital signs: yes Course Vital Signs Vital signs: Initial Vital Signs Temperature 97.3 F L 07/29/23 13:14 Temperature Source Temporal Artery Scan 07/29/23 13:14 Pulse Rate 97 07/29/23 13:14 Pulse Rhythm Regular 07/29/23 13:14 Respiratory Rate 16 07/29/23 13:14 Blood Pressure 136/103 H 07/29/23 13:14 Blood Pressure Mean 114 H 07/29/23 13:14 Blood Pressure Position Sitting 07/29/23 13:14 Pulse Oximetry 98 07/29/23 13:14 Oxygen Delivery Method Room Air 07/29/23 13:14 Vital Signs Temperature 97.3 F L 07/29/23 13:14 Pulse Rate 97 07/29/23 13:14 Respiratory Rate 16 07/29/23 13:14 Blood Pressure 136/103 H 07/29/23 13:14 Pulse Oximetry 98 07/29/23 13:14 Oxygen Delivery Method Room Air 07/29/23 13:14 Temperature 97.3 F L 07/29/23 13:14 Pulse Rate 99 07/29/23 16:04 Respiratory Rate 18 07/29/23 15:01 Blood Pressure 130/97 H 07/29/23 15:01 Pulse Oximetry 99 07/29/23 16:04 Oxygen Delivery Method Room Air 07/29/23 15:30 Medications Administered Medications: Discontinued Medications Generic Name Dose Route Start Last Admin Trade Name Freq PRN Reason Stop Dose Admin Potassium Chloride 10 meq in 100 mls @ 100 mls/hr 07/29/23 14:14 07/29/23 15:42 Potassium Chloride IVPB 07/29/23 15:13 Infused ONCE ONE Infusion Sodium Chloride 1,000 mls @ 1,000 mls/hr 07/29/23 14:14 07/29/23 16:22 0.9 % Sodium Chloride 1000 Ml IV 07/29/23 15:13 Infused .Q1H ONE Infusion Magnesium Sulfate/Dextrose 1 gm in 100 mls @ 100 mls/hr 07/29/23 14:39 07/29/23 16:22 Magnesium Sulf 1 G/100 Ml-D5w IVPB 07/29/23 15:38 Infused ONCE ONE Infusion Ondansetron HCl 4 mg 07/29/23 14:30 07/29/23 14:57 Ondansetron 2 Mg/Ml Inj IVP 07/29/23 14:31 4 mg ONCE ONE Administration Potassium Bicarbonate 25 meq 07/29/23 14:14 07/29/23 14:36 Potassium Bicarb 25 Meq Effervescent Tab PO 07/29/23 14:15 25 meq ONCE ONE Administration Medical Decision Making MDM Narrative Medical decision making narrative: I reviewed EKG of concern. Do see a normal sinus rhythm. Rather small T-waves. Rate of 96 With history of chronic loose/diarrheal stools may be contributing some hypokalemia. Also has medications that might be related. She notes herself to drink a lot of water. Less likely that this would be dilutional given that sodium is normal. Have requested add on magnesium as well. Will begin potassium supplementation. Magnesium level also low. Will supplement this as well. Along this and IV hydration she is anxious to leave. There have been no events with stable vitals in the emergency department. See patient discharge plan for further discussion Medical Records Medical records reviewed: Yes I reviewed the patient's medical records Lab Data Lab results reviewed: Yes I reviewed the patient's lab results Labs: Lab Results 07/29/23 Range/Units 13:28 Sodium 136 (135-149) mmol/L Potassium 2.5 L* (3.6-5.1) mmol/L Chloride 95 L (96-114) mmol/L Carbon Dioxide 31 (20-32) mmol/L Anion Gap 10 (7-15) mEq/L BUN 13 (5-24) mg/dL Creatinine 0.7 (0.5-1.5) mg/dL Estimated Creat Clear 94.21 Estimated GFR 111 ml/min Glucose 94 (60-115) mg/dL Calcium 8.9 (8.4-10.6) mg/dL Magnesium 1.4 L (1.5-2.6) mg/dL ECG Data Attestation: I personally reviewed and interpreted this ECG as follows: (Normal sinus rhythm. Lower T-wave amplitude. Rate of 96. Some baseline irritability) Discharge Plan Discharge Clinical Impression: BRBPR (bright red blood per rectum), Hypokalemia, Hypomagnesemia Patient Disposition: Home w/ Parent or Adult Condition: Improved Additional Instructions: I would make a follow-up with your primary care provider for about 10 days from now. You might review whether not you still need to be on that omeprazole. Perhaps could transition to something like famotidine? And prescribing potassium and magnesium replacement for you. Please recheck labs on follow-up. You will likely need to discuss further management of these loose/diarrheal stools and whether not you will continue on the medication like hydrochlorothiazide. If you have not had a colonoscopy this might be indicated as well. Return for marked increase in bleeding, worsening lightheadedness or shortness of breath. I have finally located an old EKG which looks quite similar to today's. It would appear that this is somewhat your normal. Your potassium was actually normal at the time of this last EKG - 2019 Prescriptions: New potassium chloride 20 mEq tablet extended release 20 meq PO DAILY Qty: 30 0RF magnesium oxide 400 mg magnesium capsule 400 mg PO DAILY Qty: 30 0RF No Action omeprazole 20 mg capsule,delayed release(DR/EC) 20 mg PO BID Qty: 180 1RF metformin 500 mg tablet 500 mg PO BIDWMEAL Qty: 180 1RF estradiol 0.05 mg/24 hr patch semiweekly 1 patch transdermal 2XW Qty: 24 1RF Rx Instructions: One patch twice weekly valsartan-hydrochlorothiazide 320-25 mg tablet 1 tab PO QDAY Qty: 90 1RF venlafaxine 37.5 mg capsule,extended release 24hr 37.5 mg PO QDAY Qty: 90 3RF Vyvanse 20 mg capsule 20 mg PO QAM Qty: 30 0RF Follow Up/Referrals: Keshia Bustillos PA-C [Primary Care Provider] - Stand Alone Forms: [employer] Info Instructions
[2023-07-29 14:08] LABS: Chloride* 95 mmol/L (96-114); Sodium* 136 mmol/L (135-149)
[2023-07-29 14:11] LABS: Anion Gap 10 mEq/L (7-15); Blood Urea Nitrogen* 13 mg/dL (5-24); Calcium* 8.9 mg/dL (8.4-10.6); Carbon Dioxide* 31 mmol/L (20-32); Creatinine* 0.7 mg/dL (0.5-1.5); Est. Creatinine Clearance* 94.21; Estimated Glomerular Filt Rate 111 ml/min; Glucose* 94 mg/dL (60-115)
[2023-07-29 14:13] LABS: Potassium* 2.5 mmol/L (3.6-5.1)
[2023-07-29 14:23] LABS: Magnesium* 1.4 mg/dL (1.5-2.6)
[2023-07-29] MEDS: 0.9 % SODIUM CHLORIDE 1000 ml 1,000 ML IV (14:36)
[2023-07-29] MEDS: POTASSIUM CHLORIDE 10 MEQ/100 ML PIGGYBACK 100 MEQ IVPB (14:36)
[2023-07-29] MEDS: POTASSIUM BICARB 25 MEQ EFFERVESCENT TAB PO (14:36)
[2023-07-29] MEDS: ONDANSETRON 2 MG/ML inj 4 MG IVP (14:57)
== END 2023-07-29 17:05 | disposition home or self-care (01) ==
PROVIDERS: Emergency Provider Family Medicine; PCP Physician Assistant Medical
DX: M54.12 Radiculopathy, cervical region (principal); R07.89 Other chest pain
CPT/HCPCS: 36415; 80048; 83735; 93005; 96365; 96367; 96375; 99284; A9270; J2405; J3475; J3480; J7030

== ENCOUNTER 2023-07-31 08:53 | Emergency (ER) | payer OTHER, SELFPAY ==
[2023-07-31 08:57] VITALS: BP 139/93; PULSE 96; RESP 18; TEMP 36.4; O2SAT 100; BMI 24.5
== END 2023-07-31 10:05 | disposition left against medical advice (07) ==
PROVIDERS: Emergency Provider Emergency Medicine Emergency Medical Services; PCP Physician Assistant Medical
DX: Z53.21 Procedure and treatment not carried out due to patient leaving prior to being seen by health care provider (principal)

== ENCOUNTER 2023-07-31 12:56 | Emergency (ER) | payer OTHER, SELFPAY ==
[2023-07-31] VITALS (7 sets, daily range): BP systolic 111–129; BP diastolic 69–99; PULSE 81–104; RESP 18; TEMP 36.4; O2SAT 97–99; BMI 24.5
--- NOTE | 2023-07-31 14:50 | ED_ITS ---
HPI - General Adult General Chief complaint: Chest Pain Stated complaint: L side numbness/chest pain Time Seen by Provider: 07/31/23 14:27 History of Present Illness HPI narrative: This 42-year-old female comes in reporting some tingling sensation emanating from her neck down into her left arm and hand. This is been present since awakening at about 2:00 a.m. this morning. She does not report any injury event or strenuous activity. She also reports some chest pain in the left upper anterior chest with occasional brief feelings of pain below ir left breast. She has had some nausea, vomiting, and diarrhea over the past week. She was seen a few days ago and noted to have potassium a 2.5 and her magnesium was a bit low. She is taking a diuretic. She does not report any lightheadedness or shortness of breath. Her chest discomfort is not reproducible. She does not have any exercise intolerance. She does have cardiac risk factors including tobacco abuse and hypertension which she is treating. Related Data Previous Rx's Medication Instructions Recorded estradiol 0.05 mg/24 hr semiweekly 1 patch transdermal 2XW #24 ea 07/13/23 transdermal patch metformin 500 mg tablet 500 mg PO BIDWMEAL #180 tabs 07/13/23 omeprazole 20 mg capsule,delayed 20 mg PO BID #180 caps 07/13/23 release valsartan 320 1 tab PO QDAY #90 tabs 07/13/23 mg-hydrochlorothiazide 25 mg tablet venlafaxine 37.5 mg 37.5 mg PO QDAY #90 caps 07/13/23 capsule,extended release 24 hr lisdexamfetamine 20 mg capsule 20 mg PO QAM #30 caps 07/25/23 (Vyvanse) magnesium oxide 400 mg PO DAILY #30 caps 07/29/23 potassium chloride 20 mEq 20 meq PO DAILY #30 tabs 07/29/23 tablet,extended release methylprednisolone 4 mg tablets in See Rx Instructions PO .COMPLEX 07/31/23 a dose pack (Medrol (Gustavo)) #21 ea Allergies Allergy/AdvReac Type Severity Reaction Status Date / Time amoxicillin Allergy Intermediate Nausea Verified 06/13/23 14:14 doxycycline Allergy Verified 06/13/23 14:14 escitalopram Allergy Verified 06/13/23 14:14 fluconazole Allergy Verified 06/13/23 14:14 tramadol Allergy Verified 06/13/23 14:14 Review of Systems Status of ROS: Reports: 10 or more systems reviewed and unremarkable except as noted in History and below Narrative: Constitutional: No fevers, no weight gain or loss. Eyes: No discharge. No vision changes. HENT: No congestion, no sore throat, no ear pain. Cardiovascular: No palpitations. Respiratory: No shortness of breath, no wheezes, no cough. Gastrointestinal: No abdominal pain, no vomiting, no diarrhea. Genitourinary: No dysuria, no hematuria. Musculoskeletal: Normal range of motion. Skin: No rashes, no pruritis. Neurological: No dizziness, weakness, speech change. Tingling sensation from her neck into her left shoulder and arm down to her hand. Endo/Heme/Allergies: No bruising or bleeding. No polydipsia. Pysch: no suicidality, no anxiety, no insomnia. All other systems reviewed and are negative. [facility] Medical History Ovarian torsion (~05/2019) ?N83.519 - Torsion of ovary and ovarian pedicle, unspecified side (ICD-10) History of opioid abuse ?F11.11 - Opioid abuse, in remission (ICD-10) History of malignant melanoma ?Z85.820 - Personal history of malignant melanoma of skin (ICD-10) Cellulitis ?L03.90 - Cellulitis, unspecified (ICD-10) Surgical History History of arthroplasty of left hip ?Z98.890 - Other specified postprocedural states (ICD-10) Status post left oophorectomy (2019) ?Z90.721 - Acquired absence of ovaries, unilateral (ICD-10) History of partial hysterectomy ?Z90.711 - Acquired absence of uterus with remaining cervical stump (ICD-10) History of hernia repair ?Z98.890 - Other specified postprocedural states (ICD-10) ?Z87.19 - Personal history of other diseases of the digestive system (ICD-10) 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 Smoking Status: Current every day smoker Second hand tobacco smoke exposure: No How often do you have a drink containing alcohol: 4 or more times a week How many standard drinks containing alcohol do you have on a typical day: 3 or 4 AUDIT-C Alcohol total score: 5 Non-prescribed substance use: denies use Little interest or pleasure in doing things: not at all Feeling down, depressed, or hopeless: not at all Exam Narrative: Exam Narrative: Constitutional: Well-developed, well-nourished, no acute distress. HEENT: Normocephalic, atraumatic. Neck: Normal range of motion. Nontender. Supple. Heart: Regular. No murmurs. Normal rate. Intact distal pulses. Lungs: Clear to auscultation. No wheezes, rhonchi, or rales. Chest discomfort as described above. Abdomen: Normal bowel sounds. Nontender. No rebound tenderness. Genitalia: Deferred. Back: No midline tenderness. Normal range of motion. Extremities: Normal range of motion. No injury. Skin: Intact. No rash. Warm. No erythema or pallor. Neurologic: No weakness. Alert and oriented. Spurlings test is positive to her left upper extremity. Psychiatric: No suicidality. No anxiety or depression. No insomnia. Nursing notes and vitals signs are reviewed. Const: Vital Signs, click to edit/add: Vital Signs - 24 hr 07/31/23 13:20 07/31/23 15:27 07/31/23 15:28 Temperature 97.6 F Pulse Rate 82 84 Pulse Rate [Pulse Oximeter] 104 H Respiratory Rate 18 Blood Pressure 117/84 Blood Pressure [Ri ght Upper Arm] 111/69 Pulse Oximetry 97 99 97 Oxygen Delivery Me thod Room Air Course Vital Signs Vital signs: Initial Vital Signs Temperature 97.6 F 07/31/23 13:20 Temperature Source Temporal Artery Scan 07/31/23 13:20 Pulse Rate 104 H 07/31/23 13:20 Pulse Rhythm Regular 07/31/23 13:20 Respiratory Rate 18 07/31/23 13:20 Blood Pressure 111/69 07/31/23 13:20 Blood Pressure Mean 83 07/31/23 13:20 Pulse Oximetry 97 07/31/23 13:20 Oxygen Delivery Method Room Air 07/31/23 13:20 Vital Signs Temperature 97.6 F 07/31/23 13:20 Pulse Rate 104 H 07/31/23 13:20 Respiratory Rate 18 07/31/23 13:20 Blood Pressure 111/69 07/31/23 13:20 Pulse Oximetry 97 07/31/23 13:20 Oxygen Delivery Method Room Air 07/31/23 13:20 Temperature 97.6 F 07/31/23 13:20 Pulse Rate 84 07/31/23 15:28 Respiratory Rate 18 07/31/23 13:20 Blood Pressure 117/84 07/31/23 15:27 Pulse Oximetry 97 07/31/23 15:28 Oxygen Delivery Method Room Air 07/31/23 13:20 Medical Decision Making MDM Narrative Medical decision making narrative: This patient comes in reporting tingling and neck discomfort. The tingling radiates down into her left hand. She also has some chest discomfort as described above. She has some anxiety about the chest symptoms and does have risk factors in that she is a smoker and is taking a blood pressure medicine. However her story of symptoms is not very suspicious for cardiac cause. Her EKG is completely normal as was her troponin. Other lab results are also reassuring. Her some potassium has improved from 2.5-2.9 when compared to her last visit a few days ago. She does have potassium supplements she can take. She is okay to be discharged home. I did prescribe a Medrol Dosepak which may help her with her tingling and neck symptoms. Lab Data Labs: Lab Results 07/31/23 07/31/23 Range/Units 14:49 15:13 Sodium 136 (135-149) mmol/L Potassium 2.9 L* (3.6-5.1) mmol/L Chloride 97 (96-114) mmol/L Carbon Dioxide 31 (20-32) mmol/L Anion Gap 8 (7-15) mEq/L BUN 8 (5-24) mg/dL Creatinine 0.7 (0.5-1.5) mg/dL Estimated Creat Clear 94.21 Estimated GFR 111 ml/min Glucose 106 (60-115) mg/dL Calcium 8.7 (8.4-10.6) mg/dL Magnesium 1.6 (1.5-2.6) mg/dL POC Troponin I 0.00 L (0.01-0.04) ng/ml ECG Data Attestation: I personally reviewed and interpreted this ECG as follows: Interpretation: Sinus tachycardia, rate is 104 beats per minute. There are no specific ST or T- wave abnormalities. Discharge Plan Discharge Clinical Impression: Cervical radiculopathy, Atypical chest pain Patient Disposition: Home, Self-Care Condition: Stable Additional Instructions: Take medication as prescribed. Smoking cessation is recommended. Follow up with MD or return if symptoms are persistent or worsening. Prescriptions: New methylprednisolone [Medrol (Gustavo)] 4 mg tablets,dose pack See Rx Instructions .ROUTE .COMPLEX Qty: 21 0RF Rx Instructions: orally per package directions No Action potassium chloride 20 mEq tablet extended release 20 meq PO DAILY Qty: 30 0RF magnesium oxide 400 mg magnesium capsule 400 mg PO DAILY Qty: 30 0RF omeprazole 20 mg capsule,delayed release(DR/EC) 20 mg PO BID Qty: 180 1RF metformin 500 mg tablet 500 mg PO BIDWMEAL Qty: 180 1RF estradiol 0.05 mg/24 hr patch semiweekly 1 patch transdermal 2XW Qty: 24 1RF Rx Instructions: One patch twice weekly valsartan-hydrochlorothiazide 320-25 mg tablet 1 tab PO QDAY Qty: 90 1RF venlafaxine 37.5 mg capsule,extended release 24hr 37.5 mg PO QDAY Qty: 90 3RF Vyvanse 20 mg capsule 20 mg PO QAM Qty: 30 0RF Follow Up/Referrals: Keshia Bustillos PA-C [Primary Care Provider] - Stand Alone Forms: [employer] Info Instructions
[2023-07-31 15:54] LABS: Chloride* 97 mmol/L (96-114); Sodium* 136 mmol/L (135-149)
[2023-07-31 15:57] LABS: Anion Gap 8 mEq/L (7-15); Blood Urea Nitrogen* 8 mg/dL (5-24); Carbon Dioxide* 31 mmol/L (20-32); Creatinine* 0.7 mg/dL (0.5-1.5); Est. Creatinine Clearance* 94.21; Estimated Glomerular Filt Rate 111 ml/min
[2023-07-31 15:58] LABS: Calcium* 8.7 mg/dL (8.4-10.6); Glucose* 106 mg/dL (60-115); Magnesium* 1.6 mg/dL (1.5-2.6)
[2023-07-31 16:02] LABS: Potassium* 2.9 mmol/L (3.6-5.1)
== END 2023-07-31 16:26 | disposition home or self-care (01) ==
PROVIDERS: Emergency Provider Emergency Medicine Emergency Medical Services; PCP Physician Assistant Medical
DX: M54.12 Radiculopathy, cervical region (principal); R07.89 Other chest pain
CPT/HCPCS: 36415; 80048; 83735; 84484; 93005; 94761; 99284

== ENCOUNTER 2023-09-20 10:06 | Outpatient (CLI) | payer OTHER, SELFPAY | END 2023-09-20 10:07 | disposition home or self-care (01) | PROVIDERS: PCP Physician Assistant Medical; Visit Provider Physician Assistant Medical | DX: I10 Essential (primary) hypertension (principal); E83.42 Hypomagnesemia; E87.6 Hypokalemia; R79.89 Other specified abnormal findings of blood chemistry; R20.2 Paresthesia of skin | CPT/HCPCS: 80076; 82607; 82746; 83735; 84425; 87086 ==

== ENCOUNTER 2023-10-09 11:33 | Outpatient (CLI) | payer OTHER, SELFPAY | END 2023-10-09 11:34 | disposition home or self-care (01) | PROVIDERS: PCP Physician Assistant Medical; Visit Provider Physician Assistant Medical | DX: E83.42 Hypomagnesemia (principal); E87.6 Hypokalemia; I10 Essential (primary) hypertension; R80.9 Proteinuria, unspecified; R79.89 Other specified abnormal findings of blood chemistry | CPT/HCPCS: 80076; 82043; 82570; 83735; 87086 ==

== ENCOUNTER 2023-10-25 07:04 | Outpatient (CLI) | payer OTHER, SELFPAY ==
--- NOTE | 2023-10-25 07:15 | US_ITS ---
Patient: AARON HANSEN Facility:?[facility] Patient ID:?[id number] Site Patient ID:?[id number]. Site :?1980 Study:?US-Abdomen -10/25/2023 8:05:40 AM Ordering Physician:?Keshia Bustillos Final Report: CLINICAL HISTORY: abnormal liver enzymes and protein in urine COMPARISON: 06/14/2023 TECHNIQUE: Real time cortes scale imaging and color Doppler analysis was performed of the abdomen. FINDINGS: The liver measures 18.0 cm and has diffuse increased echotexture. No intrahepatic mass. Normal patency of the main portal vein with antegrade flow. The spleen is of normal size. The pancreas appears heterogeneous. The proximal abdominal aorta and IVC appear normal. There is no evidence of ascites. The gallbladder is of normal size and there is no evidence of sludge or stones within the gallbladder lumen. The gallbladder wall measures 2 mm in thickness. The common bile duct measures 3.4 mm in size within the lyndsay hepatis. The kidneys appear symmetric. The right kidney measures 10.6 cm in length and the left kidney measures 10.2 cm. There is no evidence of a renal calculus or hydronephrosis. IMPRESSION: Mild hepatomegaly with moderate hepatic steatosis. Dictated by Rei Harding MD @ 10/26/2023 7:18:17 AM Signed by:?Rei Harding MD @10/26/2023 7:18:17 AM (Electronic Signature)
== END 2023-10-25 07:05 | disposition home or self-care (01) ==
LOC: US 07:05
PROVIDERS: PCP Physician Assistant Medical; Visit Provider Physician Assistant Medical
DX: R79.89 Other specified abnormal findings of blood chemistry (principal); K76.0 Fatty (change of) liver, not elsewhere classified
CPT/HCPCS: 76700

== ENCOUNTER 2024-01-29 10:21 | Outpatient (CLI) | payer OTHER, SELFPAY | END 2024-01-29 10:22 | disposition home or self-care (01) | PROVIDERS: PCP Physician Assistant Medical; Visit Provider Physician Assistant Medical | DX: I10 Essential (primary) hypertension (principal); E53.8 Deficiency of other specified B group vitamins; E87.6 Hypokalemia; R80.9 Proteinuria, unspecified; R79.89 Other specified abnormal findings of blood chemistry; F10.10 Alcohol abuse, uncomplicated | CPT/HCPCS: 80076; 82746; 83735; 87086 ==

== ENCOUNTER 2024-05-08 10:36 | Outpatient (CLI) | payer OTHER, SELFPAY | END 2024-05-08 10:37 | disposition home or self-care (01) | LOC: LKVREF 10:37 | PROVIDERS: PCP Physician Assistant Medical; Visit Provider Physician Assistant Medical | DX: I10 Essential (primary) hypertension (principal) | CPT/HCPCS: 80053 ==

== ENCOUNTER 2024-05-27 09:34 | Outpatient (CLI) | payer OTHER, SELFPAY | END 2024-05-27 09:35 | disposition home or self-care (01) | PROVIDERS: PCP Physician Assistant Medical; Visit Provider Physician Assistant Medical | DX: N63.20 Unspecified lump in the left breast, unspecified quadrant (principal) | CPT/HCPCS: 76642; 77066; G0279 ==

== ENCOUNTER 2024-06-17 22:45 | Outpatient (CLI) | payer OTHER, SELFPAY | END 2024-06-17 22:46 | disposition home or self-care (01) | LOC: AMB 06-19 12:17 | PROVIDERS: PCP Physician Assistant Medical; Visit Provider Family Medicine | DX: F10.929 Alcohol use, unspecified with intoxication, unspecified (principal); R41.82 Altered mental status, unspecified | CPT/HCPCS: A0425; A0427 ==

== ENCOUNTER 2024-06-17 23:22 | Emergency (ER) | payer OTHER, SELFPAY ==
[2024-06-17 23:31] VITALS: BP 147/107; PULSE 111; RESP 18; TEMP 36.6; O2SAT 97
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
[2024-06-17 23:44] VITALS: O2SAT 91
--- NOTE | 2024-06-17 23:51 | ED.NURSE ---
Pt hooked up to manager monitoring and pulse ox. No bruising observed on the pt neck, arms, or stomach.
--- NOTE | 2024-06-17 23:57 | ED.NURSE ---
Pt mother in room.
[2024-06-18 00:17] LABS: Basophils Absolute Auto 0.04 K/uL (0.00-0.30); Basophils Percent Auto 0.4 % (0.0-3.0); Eosinophils Absolute Auto 0.18 K/uL (0.00-0.50); Hematocrit 42.3 % (33.0-51.0); Hemoglobin* 14.4 gm/dL (12.0-16.0); Immature Granulocytes Abs Auto 0.02 K/uL (0.00-0.30); Immature Granulocytes Pct Auto 0.2 %; Lymphocytes Absolute Auto 3.43 K/uL (0.90-2.90); Lymphocytes Percent Auto 38.2 % (20-44); Mean Corpuscular HGB Conc 34 gm/dL (32-36); Mean Corpuscular Hemoglobin 32 pg (26-34); Mean Corpuscular Volume 93 fL (80-100); Monocytes Percent Auto 7.8 % (0.0-11.0); Neutrophils Absolute Auto 4.61 K/uL (1.7-7.0); Neutrophils Percent Auto 51.4 % (42.0-72.0); Platelet Count* 322 K/uL (140-440); RDW Coefficient of Variation % 12.4 % (11.5-15.5); Red Blood Count 4.56 m/uL (4.00-5.20); White Blood Count* 8.98 K/uL (4.50-11.00)
[2024-06-18 00:21] LABS: Slide Review Reflex No
[2024-06-18 00:27] LABS: Amphetamine Screen Urine POSITIVE (Negative); Barbiturate Screen Urine Negative (Negative); Benzodiazepines Screen Urine Negative (Negative); Cannabinoid Screen Urine Negative (Negative); Cocaine Screen Urine Negative (Negative); Methadone Screen Urine Negative (Negative); Methamphetamines Screen Urine Negative (Negative); Opiate Screen Urine Negative (Negative); Oxycodone Screen Urine Negative (Negative); Phencyclidine Screen Urine Negative (Negative); Tricyclic Antidepressant Urine Negative (Negative)
[2024-06-18 00:29] LABS: Chloride* 108 mmol/L (96-114)
[2024-06-18 00:30] LABS: Potassium* 3.7 mmol/L (3.6-5.1); Sodium* 144 mmol/L (135-149)
[2024-06-18 00:32] LABS: Alanine Aminotransferase* 24 U/L (4-35); Anion Gap 12 mEq/L (7-15); Aspartate Amino Transferase* 34 U/L (12-35); Blood Urea Nitrogen* 10 mg/dL (5-24); Calcium* 9.6 mg/dL (8.4-10.6); Carbon Dioxide* 24 mmol/L (20-32); Creatinine* 0.7 mg/dL (0.5-1.5); Estimated Glomerular Filt Rate 110 ml/min; Glucose* 87 mg/dL (60-115); Total Protein* 8.2 g/dL (6.0-8.3)
[2024-06-18 00:33] LABS: Alkaline Phosphatase* 52 U/L (40-150); Bilirubin Direct* 0.4 mg/dL (0.0-0.5); Bilirubin Total* 0.4 mg/dL (0.1-1.5); Ethanol* 0.22 % (0.01-0.03)
[2024-06-18 00:34] LABS: Acetaminophen* < 10.0 ug/mL (10.0-30.0); Salicylate* < 1.0 mg/dL (1.0-10)
--- NOTE | 2024-06-18 01:00 | ED.NURSE ---
Pt is calm and cooperative, is resting in bed at this time.
== END 2024-06-18 01:41 | disposition home or self-care (01) ==
PROVIDERS: Emergency Provider Family Medicine; PCP Physician Assistant Medical
DX: F10.129 Alcohol abuse with intoxication, unspecified (principal)
CPT/HCPCS: 36415; 80048; 80076; 80143; 80179; 80306; 82077; 85025; 93005; 94761; 99284

== ENCOUNTER 2024-06-19 12:57 | Outpatient (CLI) | payer OTHER, SELFPAY | END 2024-06-19 12:58 | disposition home or self-care (01) | PROVIDERS: PCP Physician Assistant Medical; Visit Provider Physician Assistant Medical | DX: F10.10 Alcohol abuse, uncomplicated (principal) | CPT/HCPCS: 80325; 80359 ==